=== PATIENT | female | born 1995 | race Caucasian/White ===

== ENCOUNTER 2021-05-21 13:13 | Emergency (ER) | payer SELFPAY ==
[2021-05-21] MEDS ORDERED: Ibuprofen 200 MG TAB ONE (13:56)
[2021-05-22 09:55] LABS: SARS-CoV-2 PCR by NAA Not Detected (NotDetected)
== END 2021-05-21 14:52 | disposition home or self-care (01) ==
LOC: ERS 13:13
DX: B34.9 Viral infection, unspecified (principal); Z20.822 Contact with and (suspected) exposure to COVID-19
CPT/HCPCS: 87081; 87430; 99283; U0003; U0005